=== PATIENT | female | born 2005 | race African-American/Black ===

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

== ENCOUNTER 2023-04-16 12:02 | Emergency (ER) | payer MEDICAID ==
[~2023-04-16] VITALS: Ht 165.1 cm; Wt 47.2 kg
[2023-04-16 17:59] VITALS: BP 113/74
== END 2023-04-16 18:02 | disposition home or self-care (01) ==
LOC: ER 12:02
DX: O03.9 Complete or unspecified spontaneous abortion without complication (principal); R10.2 Pelvic and perineal pain; F12.10 Cannabis abuse, uncomplicated; Z3A.01 Less than 8 weeks gestation of pregnancy
CPT/HCPCS: 36415; 76801; 76817; 84702